=== PATIENT | male | born 1940 | race Hispanic/Latino ===

== ENCOUNTER 2018-06-02 13:54 | Emergency (ER) | payer MEDICARE, BC ==
[2018-06-02 13:56] VITALS: RESP 18; TEMP 97.7; BMI 28.1
[2018-06-02] MEDS ORDERED: Lidocaine 1% Inj (20ml) IJ STA (14:26)
--- NOTE | 2018-06-02 14:31 | ED PDOC ---
Arrival/HPI - General Historian: Patient - History of Present Illness Narrative History of Present Illness (Text): 06/02/18 14:27 7 y/o male, nkda, here for the head and facial injury x 1 hour. Pt. stated that he went to see the pmd Dr. Ayon today for nasal fracture for ENT, tripped and fall on the curbside, no LOC, told to come to the ER for evaluation, last tetanus under 2 years ago, no numbness or tingling, no neck/back/extremity pain, able to recall the whole event, no other medical or psychological complaints. <Lamont Doran - Last Filed: 06/02/18 18:19> <Malcom Rogers - Last Filed: 06/02/18 18:30> - General Chief Complaint: Trauma Past Medical History - Provider Review Nursing Documentation Reviewed: Yes - Infectious Disease Hx of Infectious Diseases: None - Cardiac Hx Cardiac Disorders: No - Pulmonary Hx Respiratory Disorders: No - Neurological Hx Neurological Disorder: No - HEENT Hx HEENT Disorder: Yes (B/L hearing aids) - Renal Hx Renal Disorder: No - Endocrine/Metabolic Hx Endocrine Disorders: No - Hematological/Oncological Hx Blood Disorders: No - Integumentary Hx Dermatological Disorder: No - Musculoskeletal/Rheumatological Hx Musculoskeletal Disorders: Yes Hx Gout: Yes - Gastrointestinal Hx Gastrointestinal Disorders: No - Genitourinary/Gynecological Hx Genitourinary Disorders: No - Psychiatric Hx Psychophysiologic Disorder: No Hx Substance Use: No - Surgical History Hx Musculoskeletal Surgery: Yes (R rotator cuff surgery) <Lamont Doran - Last Filed: 06/02/18 18:19> Family/Social History - Physician Review Nursing Documentation Reviewed: Yes Family/Social History: Unknown Family HX Smoking Status: Never Smoked Hx Alcohol Use: No Hx Substance Use: No <Lamont Doran - Last Filed: 06/02/18 18:19> Allergies/Home Meds <Lamont Doran - Last Filed: 06/02/18 18:19> <Malcom Rogers - Last Filed: 06/02/18 18:30> Allergies/Adverse Reactions: Allergies No Known Allergies Allergy (Verified 06/02/18 13:56) Home Medications: Home Meds Medication Instructions Recorded Confirmed RX: Allopurinol [Zyloprim] 100 mg pe PO DAILY 06/02/18 06/02/18 RX: Amoxicillin [Amoxil 250 mg Cap] 250 mg PO DAILY 06/02/18 06/02/18 Review of Systems - Review of Systems Constitutional: absent: Fatigue, Fevers Eyes: absent: Vision Changes ENT: absent: Hearing Changes Respiratory: absent: SOB, Cough Cardiovascular: absent: Chest Pain Gastrointestinal: absent: Abdominal Pain, Diarrhea, Nausea, Vomiting Skin: Laceration. absent: Rash, Pruritis, Skin Lesions, Abscess, Ulcer, Cellulitis Neurological: absent: Headache, Dizziness, Gait Changes Psychiatric: absent: Anxiety, Depression, Suicidal Ideation <Lamont Doran Q - Last Filed: 06/02/18 18:19> Physical Exam Vital Signs Reviewed: Yes Vital Signs Temp Pulse Resp BP Pulse Ox 06/02/18 13:55 97.7 F 80 18 186/99 H 97 Temperature: Afebrile Blood Pressure: Hypertensive Pulse: Regular Respiratory Rate: Normal Appearance: Positive for: Well-Appearing, Non-Toxic, Comfortable Pain Distress: None Mental Status: Positive for: Alert and Oriented X 3 - Systems Exam Head: Present: Laceration (Rt. upper lateral eyebrow noted to have 4cm laceration X shaped with swelling/tenderness), Other (Facial: +ttp on the nasal region with swelling. ) Pupils: Present: PERRL Extroacular Muscles: Present: EOMI Conjunctiva: Present: Normal Ears: Present: NORMAL TM, Normal Canal. No: Erythema Mouth: Present: Moist Mucous Membranes Nose (External): Present: Atraumatic, Abrasion (healing approx 1cm on the bridge). No: Contusion, Laceration, Lesions Nose (Internal): Present: Normal Inspection, No Active Bleeding. No: Rhinorrhea, Septal Deviation, Septal Hematoma, Epistaxis Neck: Present: Normal Range of Motion Respiratory/Chest: Present: Clear to Auscultation, Good Air Exchange. No: Respiratory Distress, Accessory Muscle Use Cardiovascular: Present: Regular Rate and Rhythm, Normal S1, S2. No: Murmurs Abdomen: No: Tenderness, Distention, Peritoneal Signs Back: Present: Normal Inspection. No: CVA Tenderness, Midline Tenderness, Paraspinal Tenderness, Pain with Leg Raise Upper Extremity: Present: Normal Inspection, Normal ROM, NORMAL PULSES, Neurovascularly Intact, Capillary Refill < 2s. No: Cyanosis, Edema, Tenderness, Swelling, Deformity Lower Extremity: Present: Normal Inspection, NORMAL PULSES, Normal ROM, Neurovascularly Intact. No: Edema, Tenderness, Swelling, Deformity Neurological: Present: GCS=15, CN II-XII Intact, Speech Normal, Motor Func Grossly Intact, Gait Normal, Memory Normal Skin: Present: Warm, Dry, Normal Color. No: Rashes Psychiatric: Present: Alert, Oriented x 3, Normal Insight, Normal Concentration <DoranLamont Cuevas - Last Filed: 06/02/18 18:19> Vital Signs Temp Pulse Resp BP Pulse Ox 06/02/18 16:41 77 18 161/89 H 96 06/02/18 13:55 97.7 F 80 18 186/99 H 97 <Malcom Rogers - Last Filed: 06/02/18 18:30> Medical Decision Making ED Course and Treatment: 06/02/18 14:36 -CT head/facial -will suture 06/02/18 16:25 PROCEDURE: LACERATION REPAIR Performed by the emergency provider Location: rt sided facial/eyebrow Length: 4 cm Description: {"clean wound edges","no foreign bodies"} Distal CMS: Normal. No deficits. Neurovascularly intact. Anesthesia: Lidocaine 1% 1.5cc Preparation: The wound was cleaned with NS 1000cc and clean with [place]. The area was prepped and draped in the usual sterile fashion. Exploration: The wound was explored and no foreign bodies were found. Procedure: The wound was closed with 6-0 nylon. There was {good / appropriate / adequate / loose} approximation. In total, 10 were used. Post-Procedure: Good closure and hemostasis. The patient tolerated the procedure well and there were no complications. CSM remains intact. Post procedure dressing applied. 06/02/18 16:29 -CT Head: No evidence of acute intracranial hemorrhage mass effect or midline shift. [id number] atrophy and chronic microvascular white matter ischemic disease. -CT Facial: Mildly displaced nasal bone fractures. Nasal septum deviation to the right with possible nondisplaced fracture in the nasal septum. Thick secretion versus less likely soft tissue lesion in the left aspect of the nasopharynx posterior to the left nasal cavity. Right periorbital soft tissue swelling and skin laceration lateral to the right orbit with small amount of subcutaneous air and trace hematoma. -Pt. feels well, will discharge home. -Discharge home with augmentin (discontinue the amoxicillin), bacitracin oinment, avoid blowing or rubbing the nose, follow up with your own pmd and ENT within 2 days, sutures need to be removed by day 5-6, start cleaning the suture wound on day 3, return to the ER for any new or worsening signs or symptoms. - RAD Interpretation Radiology Orders: 06/02/18 14:26 HEAD W/WO CONTRAST [CT] Stat MAXILLOFACIAL W/O CONTRAST [CT] Stat CT Head: Date of service: 06/02/2018 PROCEDURE: CT HEAD WITHOUT CONTRAST. HISTORY: fall, injury, laceration COMPARISON: None available. TECHNIQUE: Axial computed tomography images were obtained through the head/brain without intravenous contrast. Radiation dose: Total exam DLP = 895.34 mGy-cm. This CT exam was performed using one or more of the following dose reduction techniques: Automated exposure control, adjustment of the mA and/or kV according to patient size, and/or use of iterative reconstruction technique. FINDINGS: HEMORRHAGE: No intracranial hemorrhage. BRAIN: No mass effect or edema. Mild to moderate atrophy and chronic microvascular ischemic changes. VENTRICLES: Unremarkable. No hydrocephalus. CALVARIUM: Unremarkable. PARANASAL SINUSES: Unremarkable as visualized. No significant inflammatory changes. MASTOID AIR CELLS: Unremarkable as visualized. No inflammatory changes. OTHER FINDINGS: None. IMPRESSION: No evidence of acute intracranial hemorrhage mass effect or midline shift. [id number]-gr-[id number] atrophy and chronic microvascular white matter ischemic disease. ------ CT Facial: Date of service: 06/02/2018 PROCEDURE: CT MAXILLOFACIAL BONES WITHOUT CONTRAST HISTORY: fall, injury, laceration COMPARISON: None available. TECHNIQUE: Contiguous axial CT images of the maxillofacial bones were obtained. Coronal and sagittal reformats were generated. Radiation dose: Total exam DLP = 793.07 mGy-cm. This CT exam was performed using one or more of the following dose reduction techniques: Automated exposure control, adjustment of the mA and/or kV according to patient size, and/or use of iterative reconstruction technique. FINDINGS: NASAL BONES: There are mildly displaced nasal bone fractures seen. There is nasal septum deviation to the right with possible small nondisplaced fracture. ORBITS: There is right periorbital soft tissue swelling and laceration seen with a small amount of subcutaneous air seen lateral to the right orbit. PARANASAL SINUSES/ MASTOIDS: Clear. MAXILLA: Unremarkable. MANDIBLE/ TEMPOROMANDIBULAR JOINTS: Unremarkable. SKULL BASE: Unremarkable. TEMPORAL BONES: Middle ears and mastoid grossly unremarkable. OTHER FINDINGS: There is either mucosal thick region versus less likely soft tissue lesion posterior to the left nasal cavity in the left aspect of the nasopharynx IMPRESSION: Mildly displaced nasal bone fractures. Nasal septum deviation to the right with possible nondisplaced fracture in the nasal septum. Thick secretion versus less likely soft tissue lesion in the left aspect of the nasopharynx posterior to the left nasal cavity. Right periorbital soft tissue swelling and skin laceration lateral to the right orbit with small amount of subcutaneous air and trace hematoma. Rags Laborer: Radiologist <Lamont Doran - Last Filed: 06/02/18 18:19> - RAD Interpretation Radiology Orders: 06/02/18 14:26 HEAD W/O CONTRAST [CT] Stat MAXILLOFACIAL W/O CONTRAST [CT] Stat - Medication Orders Current Medication Orders: Discontinued Medications Lidocaine HCl (Lidocaine 1% (20ml)) 1 ml IJ STAT STA Stop: 06/02/18 14:27 <Malcom Rogers - Last Filed: 06/02/18 18:30> - PA / EXTRUDING PRESS OPERATOR / Resident Statement / has reviewed & agrees with the documentation as recorded. <Lamont Doran - Last Filed: 06/02/18 18:19> - PA / EXTRUDING PRESS OPERATOR / Resident Statement QUINTON has reviewed & agrees with the documentation as recorded. <Malcom Rogers - Last Filed: 06/02/18 18:30> Disposition/Present on Arrival - Present on Arrival Any Indicators Present on Arrival: No History of DVT/PE: No History of Uncontrolled Diabetes: No Urinary Catheter: No History of Decub. Ulcer: No History Surgical Site Infection Following: None - Disposition Have Diagnosis and Disposition been Completed?: Yes Disposition Time: 16:34 Patient Plan: Discharge <Lamont Doran - Last Filed: 06/02/18 18:19> <Malcom Rogers - Last Filed: 06/02/18 18:30> - Disposition Diagnosis: Fall, Head injury, Nasal fracture, Facial contusion Disposition: HOME/ ROUTINE Condition: IMPROVED Additional Instructions: -Discharge home with augmentin (discontinue the amoxicillin), bacitracin oinment, avoid blowing or rubbing the nose, follow up with your own pmd and ENT within 2 days, sutures need to be removed by day 5-6, start cleaning the suture wound on day 3, return to the ER for any new or worsening signs or symptoms. Prescriptions: Amoxicillin/Clavulanate [Augmentin 875 MG-125 MG] 1 tab PO BID #14 tab RX: Bacitracin OINT 1 applic TP BID #15 g RX: Acetaminophen [Pain Reliever] 500 mg PO QID PRN #30 tablet PRN Reason: Other Referrals: Estuardo Razo DO [Staff Provider] - Follow up with primary Vineet Ayon MD [Staff Provider] - Follow up with primary Forms: [facility] (Turkmen), WORK NOTE
--- NOTE | 2018-06-02 15:51 | CT ---
Date of service: 06/02/2018 PROCEDURE: CT HEAD WITHOUT CONTRAST. HISTORY: fall, injury, laceration COMPARISON: None available. TECHNIQUE: Axial computed tomography images were obtained through the head/brain without intravenous contrast. Radiation dose: Total exam DLP = 895.34 mGy-cm. This CT exam was performed using one or more of the following dose reduction techniques: Automated exposure control, adjustment of the mA and/or kV according to patient size, and/or use of iterative reconstruction technique. FINDINGS: HEMORRHAGE: No intracranial hemorrhage. BRAIN: No mass effect or edema. Mild to moderate atrophy and chronic microvascular ischemic changes. VENTRICLES: Unremarkable. No hydrocephalus. CALVARIUM: Unremarkable. PARANASAL SINUSES: Unremarkable as visualized. No significant inflammatory changes. MASTOID AIR CELLS: Unremarkable as visualized. No inflammatory changes. OTHER FINDINGS: None. IMPRESSION: No evidence of acute intracranial hemorrhage mass effect or midline shift. [id number] atrophy and chronic microvascular white matter ischemic disease.
[2018-06-02] MEDS ORDERED: Lidocaine 1% 5ml Abboject ONE (15:56)
--- NOTE | 2018-06-02 16:01 | CT ---
Date of service: 06/02/2018 PROCEDURE: CT MAXILLOFACIAL BONES WITHOUT CONTRAST HISTORY: fall, injury, laceration COMPARISON: None available. TECHNIQUE: Contiguous axial CT images of the maxillofacial bones were obtained. Coronal and sagittal reformats were generated. Radiation dose: Total exam DLP = 793.07 mGy-cm. This CT exam was performed using one or more of the following dose reduction techniques: Automated exposure control, adjustment of the mA and/or kV according to patient size, and/or use of iterative reconstruction technique. FINDINGS: NASAL BONES: There are mildly displaced nasal bone fractures seen. There is nasal septum deviation to the right with possible small nondisplaced fracture. ORBITS: There is right periorbital soft tissue swelling and laceration seen with a small amount of subcutaneous air seen lateral to the right orbit. PARANASAL SINUSES/ MASTOIDS: Clear. MAXILLA: Unremarkable. MANDIBLE/ TEMPOROMANDIBULAR JOINTS: Unremarkable. SKULL BASE: Unremarkable. TEMPORAL BONES: Middle ears and mastoid grossly unremarkable. OTHER FINDINGS: There is either mucosal thick region versus less likely soft tissue lesion posterior to the left nasal cavity in the left aspect of the nasopharynx IMPRESSION: Mildly displaced nasal bone fractures. Nasal septum deviation to the right with possible nondisplaced fracture in the nasal septum. Thick secretion versus less likely soft tissue lesion in the left aspect of the nasopharynx posterior to the left nasal cavity. Right periorbital soft tissue swelling and skin laceration lateral to the right orbit with small amount of subcutaneous air and trace hematoma.
[2018-06-02 16:43] VITALS: BP 161/89; PULSE 77; O2SAT 96
== END 2018-06-02 16:49 | disposition home or self-care (01) ==
LOC: ED 13:54
DX: S02.2XXA Fracture of nasal bones, initial encounter for closed fracture (principal); S00.83XA Contusion of other part of head, initial encounter; W01.0XXA Fall on same level from slipping, tripping and stumbling without subsequent striking against object, initial encounter; Y92.480 Sidewalk as the place of occurrence of the external cause